=== PATIENT | male | born 1950 | race Caucasian/White ===

== ENCOUNTER 2017-08-20 05:27 | Day surgery (SDC) | payer OTHER ==
[2017-08-20] MEDS ORDERED: ceFAZolin 2 GM/DEXTROSE 100 ML IV ONE (06:50)
--- NOTE | 2017-08-20 06:53 | PDANEPAE ---
ANE History of Present Illness 66 yo male with RIH for lap repair. ANE Past Medical History - Cardiovascular History Cardiovascular History Comment: had leg swelling after travel, no DVT. had abnl EKG in 2010 - F/U ECHO showed mild AI, otherwise nl, no SWMA. pt is exercising more now, no CP/SOB - Pulmonary History Hx COPD: Yes Hx Sleep Apnea: No Pulmonary History Comment: h/o, quit smoking x5 years, now no breathing problems. - Surgical History Prior Surgeries: R inguinal hernia repair ANE Review of Systems Review of Systems: - Systems Constitutional: Reports: no symptoms Cardiac: Reports: no symptoms Respiratory: Reports: no symptoms ANE Patient History - Allergies Allergies/Adverse Reactions: No Known Drug Allergies Allergy (Verified 08/19/17 16:10) - Home Medications Home medications: home medication list seen and reviewed - NPO status NPO Status: no food or drink >8 hours NPO Since - Liquids (Date): 08/19/17 NPO Since - Solids (Date): 08/19/17 - Anes Hx Anes Hx: no prior problems - Smoking Hx Smoking Status: Former smoker Marijuana use: No - Alcohol Use Alcohol Use: None - Family Anes Hx Family Anes Hx: none ANE Labs/Vital Signs - Vital Signs Blood Pressure: 112/70 Heart Rate: 54 Respiratory Rate: 16 O2 Sat (%): 93 ANE Physical Exam - Airway Neck exam: FROM Mallampati Score: Class 2 Mouth exam: normal dental/mouth exam - Pulmonary Pulmonary: clear to auscultation - Cardiovascular Cardiovascular: regular rate and rhythym - ASA Status ASA Status: II ANE Anesthesia Plan Anesthesia Plan: general endotracheal anesthesia
[2017-08-20] MEDS ORDERED: LR 1,000 ML IV ONE (07:05)
--- NOTE | 2017-08-20 07:06 | PDHPUP ---
History & Physical Update H&P update statement: This history and physical update is based on an assessment of the patient which was completed after admission or registration (within 24 hours), but prior to the surgery/procedure.
[2017-08-20] MEDS ORDERED: BUPIVACAINE 0.5% 30 ML SDV ONE (07:10)
--- NOTE | 2017-08-20 07:10 | PDGENHP ---
History & Physical Chief Complaint: rih History of Present Illness: 66 MALE WITH RECURRENT RIH/ ADMIT FOR LAP REPAIR/ RISKS AND OPTIONS FULLY DISCUSSED Pertinent Past, Social, Family History: PMH RIH, SEASONAL ALLERGIES. ROS -10 PT REVIEW, NONSMOKER. MEDS SEE LST. NKA. FAM HX NEG Relevant Physical Exam: GEN: HEALTHY, AFEBRILE. CHEST CLEAR. COR RR. ABD SOFT , RECURRENT RIH, REDUCIBLE. GEN OK. EXTREMOK. NEURO PHYSIOLOGIC Cardiorespiratory Assessment: RECURRENT RIH. PLAN LAP REPAIR
[2017-08-20] MEDS ORDERED: LIDOCAINE 2% 5 ML SDV ONE (07:14)
[2017-08-20] MEDS ORDERED: fentaNYL 100 MCG/2 ML INJ ONE ×2 (07:14→07:55)
[2017-08-20] MEDS ORDERED: PROPOFOL 200 MG/20 ML VIAL ONE (07:14)
[2017-08-20] MEDS ORDERED: DEXAMETHASONE 4 MG/ML VIAL ONE (07:14)
[2017-08-20] MEDS ORDERED: ROCURONIUM 50 MG/5 ML VIAL ONE (07:14)
[2017-08-20] MEDS ORDERED: MIDAZOLAM 2 MG/2 ML VIAL IVP ONE (07:18)
[2017-08-20] MEDS ORDERED: MIDAZOLAM 2 MG/2 ML VIAL ONE (07:19)
[2017-08-20] MEDS ORDERED: KETOROLAC 30 MG/1 ML SDV ONE (08:10)
[2017-08-20] MEDS ORDERED: HYDROCODONE/APAP 5/325 TAB PO PRN (08:14)
[2017-08-20] MEDS ORDERED: LR 500 ML IV PRN (08:14)
[2017-08-20] MEDS ORDERED: fentaNYL 100 MCG/2 ML INJ IVP PRN (08:14)
[2017-08-20] MEDS ORDERED: ONDANSETRON 4 MG/2 ML VIAL IVP PRN (08:14)
[2017-08-20] MEDS ORDERED: ALBUTEROL 3 ML DEYVIAL IH PRN (08:14)
[2017-08-20] MEDS ORDERED: ACETAMINOPHEN 500 MG TAB PO PRN (08:14)
[2017-08-20] MEDS ORDERED: NALOXONE HCL 0.4 MG/ML INJ IVP PRN (08:14)
[2017-08-20] MEDS ORDERED: PROMETHAZINE HCL 25 MG/ML INJ IVP PRN (08:14)
[2017-08-20] MEDS ORDERED: GLYCOPYRROLATE 0.2 MG/1 ML VIAL ONE (08:17)
--- NOTE | 2017-08-20 08:41 | POSTANESTH ---
Post Anesthetic Evaluation Cardiovascular Status: Normal, Stable Respiratory Status: Requires Airway Assist Level of Consciousness/Mental Status: Moderately Sleepy (Pt arouses to name, but still requiring oral airway when left undisturbed.) Pain Control: Adequate, Prn Tx Ordered Nausea/Vomiting Control: Adequate, Prn Tx Ordered Complications Possibly Related to Anesthesia: None Noted
[2017-08-20 08:51] VITALS: TEMP 97.3
[2017-08-20 09:48] VITALS: RESP 14
--- NOTE | 2017-08-20 10:15 | POSTOPPROG ---
Post Op Note Date of Operation: 08/20/17 Surgeon: Mark Escamilla Oral And Maxillofacial Surgery: Marianne Bah PAC Anesthesiologist: Dr. Ngo Anesthesia: GET(General Endotracheal) Pre-op Diagnosis: Right inguinal hernia Post-op Diagnosis: Bilateral inguinal hernias Indication: Pain Procedure: Laparoscopic bilateral inguinal hernia repairs with mesh Findings: Bilateral hernias Inf/Abcess present in the surg proc area at time of surgery?: No Depth: Organ Space EBL: Minimal
--- NOTE | 2017-08-20 10:16 | GOP ---
[f rep st] OPERATIVE REPORT DATE OF OPERATION: 08/20/2017 SURGEON: Mark Escamilla MD OTA: KYLER Workman. ANESTHESIOLOGIST: Carmen Ngo MD. PREOPERATIVE DIAGNOSIS: Recurrent right inguinal hernia. POSTOPERATIVE DIAGNOSIS: Bilateral recurrent inguinal hernias. PROCEDURE PERFORMED: Laparoscopic bilateral recurrent inguinal hernia repairs with mesh. FINDINGS: Patient was found to have bilateral direct defects, right much greater than the left. The re were no indirect sacs. DESCRIPTION OF PROCEDURE: The patient was taken to the operating room where he received a satisfacto ry general endotracheal anesthesia by Dr. Ngo, placed in supine position, and prepped and draped in the usual sterile fashion. An infraumbilical incision was made. Dissection was carried down the rectus sheath, which was incised. A subfascial tunnel was developed in the preperitoneal space that was dissected free with balloon dissector, which was replaced with a CO2 insufflation trocar. Two ot her trocars were placed in the lower midline under direct vision. Bilateral direct defects were expo sed. They were dissected free and their contents reduced. On the right side, he had a mesh plug in the direct floor, which was not adherent. Cords were mobilized. Peritoneum was dissected off the co rd structures. There were no indirect sacs. Bilateral Covidien polyester mesh patches were placed o lilian the inguinal floor and anchored in place with AbsorbaTack, securing the Marbin ligament to the la cunar ligament, to the anterior abdominal wall and the lateral abdominal wall outside the internal ri ng. Hemostasis was assured. Peritoneum was closed where necessary with hemoclips. Trocars were rem becky under direct vision. Pneumopreperitoneum was released. Trocar sites were closed with 0 Vicryl for the fascia and 4-0 Monocryl subcuticular stitch for the skin. All layers were infiltrated with 0 .5% Marcaine. Blood loss was negligible. Taken to the recovery room in good condition. /[id number]/MODL
[2017-08-20 10:47] VITALS: BP 107/61; PULSE 52; O2SAT 945
== END 2017-08-20 10:47 | disposition home or self-care (01) ==
LOC: FSGY 05:27
PROVIDERS: ATTEND Surgery
PROC: 0YUA4JZ Supplement Bilateral Inguinal Region with Synthetic Substitute, Percutaneous Endoscopic Approach (ICD-10-PCS; principal; 2017-08-20 07:15)
DX: K40.21 Bilateral inguinal hernia, without obstruction or gangrene, recurrent (principal)
CPT/HCPCS: C1727; C1781; J0690; J1100; J1885; J2250; J2704; J3010

== ENCOUNTER → 2018-09-28 | Outpatient (CLI) | payer OTHER | LOC: BHFA 14:45 | PROVIDERS: ATTEND Internal Medicine | DX: I35.1 Nonrheumatic aortic (valve) insufficiency (principal) ==